=== PATIENT | female | born 1975 | race Caucasian/White ===

== ENCOUNTER 2017-03-02 23:01 | Emergency (ER) | payer SELFPAY ==
[~2017-03-02] VITALS: Ht 175.3 cm; Wt 78.0 kg
[~2017-03-02 23:01] MED LIST: ALBU6.7H INH
[2017-03-03 01:11] LABS: DAU SCREEN DISCLAIMER
[2017-03-03 01:20] LABS: PATH.CAST-FLAG NOT PRESENT; SPERM-FLAG NOT PRESENT; SRC-FLAG NOT PRESENT; XTAL-FLAG NOT PRESENT; YLC-FLAG NOT PRESENT
[2017-03-03 01:22] LABS: HCG UR OBC PASS
[2017-03-03 02:00] VITALS: BP 154/99
== END 2017-03-03 02:14 | disposition home or self-care (01) ==
LOC: ED 23:59
DX: S06.0X0A Concussion without loss of consciousness, initial encounter (principal); S01.01XA Laceration without foreign body of scalp, initial encounter; N30.00 Acute cystitis without hematuria; F15.10 Other stimulant abuse, uncomplicated; I10 Essential (primary) hypertension; J45.909 Unspecified asthma, uncomplicated; W01.0XXA Fall on same level from slipping, tripping and stumbling without subsequent striking against object, initial encounter; Y93.89 Activity, other specified; Y92.009 Unspecified place in unspecified non-institutional (private) residence as the place of occurrence of the external cause; Y99.8 Other external cause status
CPT/HCPCS: 70450; 80307; 81001; 81025; 87086; 87491; 87591; 99285

== ENCOUNTER 2017-10-11 17:35 | Emergency (ER) | payer SELFPAY ==
[~2017-10-11] VITALS: Ht 175.3 cm; Wt 75.8 kg
[2017-10-11 17:38] VITALS: BP 149/107
[2017-10-11] MEDS ORDERED: CLINDAMYCIN 300 MG CAPSULE PO ONE (18:00)
[2017-10-11] MEDS ORDERED: OXYcodone/APAP 5/325MG TABLET PO ONE (18:00)
[2017-10-11] MEDS ORDERED: AMOXICILLIN 500 MG CAPSULE PO ONE (18:00)
[2017-10-11] MEDS ORDERED: OXYcodone/APAP 5/325MG TABLET ONE (18:01)
[2017-10-11] MEDS ORDERED: CLINDAMYCIN 300 MG CAPSULE ONE (18:02)
== END 2017-10-11 18:21 | disposition home or self-care (01) ==
LOC: ED 18:15
DX: K02.9 Dental caries, unspecified (principal); K04.7 Periapical abscess without sinus; I10 Essential (primary) hypertension; Z90.49 Acquired absence of other specified parts of digestive tract
CPT/HCPCS: 99283

== ENCOUNTER 2018-06-18 16:51 | Emergency (ER) | payer MEDICAID, OTHER ==
[~2018-06-18] VITALS: Ht 175.3 cm; Wt 81.8 kg
[2018-06-18] MEDS ORDERED: PROTONIX (17:58)
[2018-06-18] MEDS ORDERED: LISINOPRIL (17:58)
[2018-06-18 18:56] LABS: CULTURE INDICATED? YES; MICROSCOPIC INDICATED
[2018-06-18 20:03] VITALS: BP 132/82
== END 2018-06-18 20:05 | disposition home or self-care (01) ==
LOC: ED 19:50
DX: N30.00 Acute cystitis without hematuria (principal); I10 Essential (primary) hypertension; F10.20 Alcohol dependence, uncomplicated; F17.200 Nicotine dependence, unspecified, uncomplicated; Z91.040 Latex allergy status; Z90.49 Acquired absence of other specified parts of digestive tract
CPT/HCPCS: 36415; 81001; 84703; 87086; 99284

== ENCOUNTER 2019-08-11 11:39 | Emergency (ER) | payer MEDICAID ==
[~2019-08-11] VITALS: Ht 175.3 cm; Wt 88.0 kg
[~2019-08-11 11:39] MED LIST changes: -ALBU6.7H INH; +ALBU6.7H8 INH; +LISINOPRIL; +PROTONIX
[2019-08-11 12:00] VITALS: BP 119/86
--- NOTE | 2019-08-11 12:18 | NUR ---
Pt to ED room 16 from paras jesus at bedside to assess pt.
[2019-08-11] MEDS ORDERED: KETOROLAC 30 MG/1 ML IM ONE (12:30)
[2019-08-11 12:47] LABS: BASOPHILS # (AUTO) 0.02 x10^3/uL (0-0.1); BASOPHILS % (AUTO) 1 % (0-1); EOSINOPHILS # (AUTO) 0.09 x10^3/uL (0-0.4); EOSINOPHILS % (AUTO) 2 % (1-7); LYMPHOCYTES # (AUTO) 1.34 x10^3/uL (1-3.4); LYMPHOCYTES % (AUTO) 26 % (22-44); MD NO; MEAN CORPUSCULAR HEMOGLOBIN 30.3 pg (27.0-34.8); MEAN CORPUSCULAR VOLUME 89.2 fL (80-100); MEAN PLATELET VOLUME 7.7 fL (7.4-10.4); MONOCYTES # (AUTO) 0.46 x10^3/uL (0.2-0.8); MONOCYTES % (AUTO) 9 % (2-9); NEUTROPHILS # (AUTO) 3.34 x10^3/uL (1.8-6.8); NEUTROPHILS % (AUTO) 64 % (42-75); PLATELET COUNT 291 x10^3/uL (130-400); RED BLOOD COUNT 4.94 x10^6/uL (3.82-5.3); RED CELL DISTRIBUTION WIDTH 12.5 % (9.6-15.2)
[2019-08-11] MEDS ORDERED: KETOROLAC 30 MG/1 ML ONE (12:47)
[2019-08-11 12:48] LABS: MICROSCOPIC NOT IND
[2019-08-11 12:53] LABS: CULTURE INDICATED? NO
[2019-08-11 12:55] LABS: ALBUMIN 3.6 g/dL (3.4-5.0); ANION GAP 4 mmol/L (5-15); CALCIUM 8.8 mg/dL (8.5-10.1); CHLORIDE 104 mmol/L (98-107); CREATININE 0.76 mg/dL (0.55-1.02)
== END 2019-08-11 13:33 | disposition home or self-care (01) ==
LOC: ED 13:00
DX: M62.830 Muscle spasm of back (principal); I10 Essential (primary) hypertension; Z90.49 Acquired absence of other specified parts of digestive tract
CPT/HCPCS: 36415; 80048; 81003; 82040; 85025; 96372; 99283; J1885

== ENCOUNTER 2021-03-19 02:53 | Emergency (ER) | payer MEDICAID ==
[~2021-03-19] VITALS: Ht 175.3 cm; Wt 76.7 kg
[2021-03-19 02:56] VITALS: BP 151/98
== END 2021-03-19 04:18 | disposition home or self-care (01) ==
LOC: ED 04:13
DX: R07.89 Other chest pain (principal); J45.909 Unspecified asthma, uncomplicated; I10 Essential (primary) hypertension; F17.200 Nicotine dependence, unspecified, uncomplicated; Z90.49 Acquired absence of other specified parts of digestive tract
CPT/HCPCS: 71046; 93005; 99283